=== PATIENT | male | born 1945 | race Caucasian/White ===

== ENCOUNTER → 2017-01-09 | Outpatient (CLI) | payer MEDICARE, MEDICAID ==
[~2017-01-09] MED LIST: ACID1TAB7 PO; ALBU8.5H5 INH; ALPR0.25 PO; ASPI-496 PO; AZIT500T77 PO; BUDE10.2 INH; CALC-141 PO; CARV3.1212 PO; CHOL20003 PO; ERGO500017 PO; FAMO-79 PO; FLUT1DIS3 INH; GUAI600T22 PO; LEVO500T33 PO; LEVO750T26 PO; LISI-167 PO; LOVA10TA PO; NICO1PAT TD; NICO1PAT4 TD; PRED20TA PO; PRED5TAB PO; TIOT18CA INH; TRAM50TA2 PO
[2017-01-09 07:39] LABS: ASPARTATE AMINO TRANSFERASE 13 U/L (15-37); BLOOD UREA NITROGEN 22 mg/dL (7-18)
== END | disposition home or self-care (01) ==
LOC: LAB 07:13
PROVIDERS: ATTEND Internal Medicine
DX: M81.8 Other osteoporosis without current pathological fracture (principal)
CPT/HCPCS: 36415; 80053

== ENCOUNTER 2017-04-03 06:46 | Emergency (ER) | payer MEDICARE, MEDICAID ==
[~2017-04-03] VITALS: Ht 182.9 cm; Wt 54.7 kg
[~2017-04-03 06:46] MED LIST changes: +CHOL2000 PO; -CHOL20003 PO
[2017-04-03 07:40] LABS: HEMATOCRIT 39.3 % (39.2-51.8); HEMOGLOBIN 13.1 g/dL (13.7-18.0); WHITE BLOOD COUNT 16.5 x10^3/uL (3.4-10)
[2017-04-03 07:51] LABS: BLOOD UREA NITROGEN 25 mg/dL (7-18)
[2017-04-03 07:55] LABS: IS PT STATUS REG ER OR PRE ER? YES
[2017-04-03] MEDS ORDERED: LEVOFLOXACIN 750 MG TABLET PO ONE (09:00)
[2017-04-03] MEDS ORDERED: LEVOFLOXACIN 750 MG TABLET ONE (09:01)
[2017-04-03 09:15] VITALS: BP 169/85
== END 2017-04-03 09:53 | disposition home or self-care (01) ==
LOC: ED 07:24
DX: J18.9 Pneumonia, unspecified organism (principal); J44.9 Chronic obstructive pulmonary disease, unspecified; I25.2 Old myocardial infarction; Z93.3 Colostomy status
CPT/HCPCS: 36415; 71020; 80048; 82040; 83880; 84484; 85025; 93005; 99285

== ENCOUNTER → 2017-07-16 | Outpatient (CLI) | payer MEDICARE, MEDICAID ==
[~2017-07-16] MED LIST changes: +AZIT500T5 PO; -AZIT500T77 PO; +CEFD300C37 PO; +DOXY100T PO; -GUAI600T22 PO; +GUAI600T31 PO; -LEVO500T33 PO; +LEVO500T47 PO; +METO25TA35 PO; +NICO-430 TD; +NICO-486 TD; -NICO1PAT TD; -NICO1PAT4 TD; +RIVA20TA PO
== END | disposition home or self-care (01) ==
LOC: CFH 11:35 → EDSTATUS 11:45
PROVIDERS: ATTEND Internal Medicine
DX: Z13.820 Encounter for screening for osteoporosis (principal); M81.8 Other osteoporosis without current pathological fracture
CPT/HCPCS: 77080

== ENCOUNTER 2017-08-15 14:07 | Emergency (ER) | payer MEDICARE, MEDICAID ==
[~2017-08-15] VITALS: Ht 182.9 cm; Wt 53.3 kg
[2017-08-15 15:54] LABS: BASOPHILS # (AUTO) 0.04 x10^3/uL (0-0.1); BASOPHILS % (AUTO) 0 % (0-1); EOSINOPHILS # (AUTO) 0.56 x10^3/uL (0-0.4); EOSINOPHILS % (AUTO) 5 % (1-7); LYMPHOCYTES # (AUTO) 4.48 x10^3/uL (1-3.4); LYMPHOCYTES % (AUTO) 40 % (22-44); MD NO; MEAN CORPUSCULAR HEMOGLOBIN 32.5 pg (27.5-34.5); MEAN CORPUSCULAR HGB CONC 34.1 g/dL (33.2-36.2); MEAN CORPUSCULAR VOLUME 95.3 fL (81-97); MEAN PLATELET VOLUME 10.7 fL (7.4-10.4); MONOCYTES # (AUTO) 0.85 x10^3/uL (0.2-0.8); MONOCYTES % (AUTO) 8 % (2-9); NEUTROPHILS # (AUTO) 5.17 x10^3/uL (1.8-6.8); NEUTROPHILS % (AUTO) 47 % (42-75); PLATELET COUNT 205 x10^3/uL (130-400); RED CELL DISTRIBUTION WIDTH 13.8 % (9.4-14.8)
[2017-08-15 16:00] LABS: INTERNATIONAL NORMALIZED RATIO 1.11 (0.93-1.1); PROTHROMBIN TIME 11.4 Seconds (9.6-11.5)
[2017-08-15 16:03] LABS: ANION GAP 5 mmol/L (5-15); CALCIUM 8.4 mg/dL (8.5-10.1); CHLORIDE 108 mmol/L (98-107)
[2017-08-15 16:04] LABS: CREATININE 1.02 mg/dL (0.7-1.3)
[2017-08-15 17:33] VITALS: BP 132/82
== END 2017-08-15 17:35 | disposition home or self-care (01) ==
LOC: ED 15:58
DX: J44.0 Chronic obstructive pulmonary disease with (acute) lower respiratory infection (principal); R09.3 Abnormal sputum; I50.9 Heart failure, unspecified; I25.2 Old myocardial infarction; I48.91 Unspecified atrial fibrillation; Z93.3 Colostomy status
CPT/HCPCS: 36415; 71020; 80048; 85025; 85610; 85730; 93005; 99285

== ENCOUNTER → 2017-09-02 | Outpatient (CLI) | payer MEDICARE, MEDICAID | END | disposition home or self-care (01) | LOC: RAD 15:10 | PROVIDERS: ATTEND Registered Nurse | DX: J18.9 Pneumonia, unspecified organism (principal); J84.10 Pulmonary fibrosis, unspecified | CPT/HCPCS: 71046 ==

== ENCOUNTER → 2017-09-09 | Outpatient (CLI) | payer MEDICARE, MEDICAID ==
[2017-09-09 09:15] LABS: ALANINE AMINOTRANSFERASE 20 U/L (12-78); ALBUMIN 3.9 g/dL (3.4-5.0); ANION GAP 7 mmol/L (5-15); CALCIUM 9.8 mg/dL (8.5-10.1); CHLORIDE 101 mmol/L (98-107); CHOLESTEROL, TOTAL 193 mg/dL (140-239); CREATININE 1.04 mg/dL (0.7-1.3)
[2017-09-09 09:17] LABS: ALKALINE PHOSPHATASE 69 U/L (45-117); BILIRUBIN,TOTAL 0.5 mg/dL (0.2-1.0); CHOL/HDL RATIO 1.9; HDL CHOL % 51 % (26-37); HDL CHOLESTEROL (DIRECT) 99 mg/dL (40-60); LDL CHOLESTEROL,CALCULATED 75 mg/dL (54-169); LDL/HDL RATIO 0.8 (0.5-3.0); TOTAL PROTEIN 7.8 g/dL (6.4-8.2); TRIGLYCERIDES 94 mg/dL (50-200); VLDL CHOLESTEROL 19 mg/dL (0-25)
== END | disposition home or self-care (01) ==
LOC: LAB 08:53
PROVIDERS: ATTEND Internal Medicine Cardiovascular Disease
DX: E78.4 Other hyperlipidemia (principal)
CPT/HCPCS: 36415; 80053; 80061

== ENCOUNTER 2017-10-21 16:13 | Inpatient (IN) | payer MEDICARE, MEDICAID ==
[~2017-10-21] VITALS: Ht 182.9 cm; Wt 58.5 kg
[2017-10-21] MEDS ORDERED: SODIUM CHLORIDE FLUSH 10ML SYR IVF ONE (17:00)
[2017-10-21] MEDS ORDERED: ALBUTEROL/IPRATROPIUM 2.5MG/0.5MG, 3 ML NPPB ONE (17:00)
[2017-10-21] MEDS ORDERED: ALBUTEROL/IPRATROPIUM 2.5MG/0.5MG, 3 ML ONE (17:42)
[2017-10-21 17:46] LABS: BASOPHILS # (AUTO) 0.06 x10^3/uL (0-0.1); BASOPHILS % (AUTO) 1 % (0-1); EOSINOPHILS # (AUTO) 1.27 x10^3/uL (0-0.4); EOSINOPHILS % (AUTO) 10 % (1-7); LYMPHOCYTES # (AUTO) 2.72 x10^3/uL (1-3.4); LYMPHOCYTES % (AUTO) 21 % (22-44); MD NO; MEAN CORPUSCULAR HEMOGLOBIN 31.8 pg (27.5-34.5); MEAN CORPUSCULAR HGB CONC 33.8 g/dL (33.2-36.2); MEAN CORPUSCULAR VOLUME 94.2 fL (81-97); MEAN PLATELET VOLUME 10.5 fL (7.4-10.4); MONOCYTES # (AUTO) 1.04 x10^3/uL (0.2-0.8); MONOCYTES % (AUTO) 8 % (2-9); NEUTROPHILS # (AUTO) 8.14 x10^3/uL (1.8-6.8); NEUTROPHILS % (AUTO) 62 % (42-75); PLATELET COUNT 213 x10^3/uL (130-400); RED BLOOD COUNT 3.86 x10^6/uL (4.38-5.82)
[2017-10-21 17:56] LABS: ALANINE AMINOTRANSFERASE 31 U/L (12-78); ALBUMIN 3.8 g/dL (3.4-5.0); ANION GAP 9 mmol/L (5-15); CALCIUM 9.3 mg/dL (8.5-10.1); CHLORIDE 104 mmol/L (98-107)
[2017-10-21 18:01] LABS: ALKALINE PHOSPHATASE 79 U/L (45-117); BILIRUBIN,TOTAL 0.2 mg/dL (0.2-1.0); TOTAL PROTEIN 7.8 g/dL (6.4-8.2); TROPONIN I 0.017 ng/mL (0.000-0.045)
[2017-10-21] MEDS ORDERED: SODIUM CHLORIDE FLUSH 10ML SYR IVF PRN (19:30)
[2017-10-21] MEDS ORDERED: HOME OXYGEN NAS (19:34)
[2017-10-21 20:30] VITALS: BP 162/69
[2017-10-21 20:35] VITALS: BP 162/69
[2017-10-21] MEDS ORDERED: morphine SULFATE 10 MG/ML, 1ML IVPush PRN (21:00)
[2017-10-21] MEDS ORDERED: hydrALAzine 20 MG/ML, 1ML IVPush PRN (21:00)
[2017-10-21] MEDS ORDERED: ALBUTEROL/IPRATROPIUM 2.5MG/0.5MG, 3 ML NPPB SCH (21:00)
[2017-10-21] MEDS ORDERED: ALBUTEROL/IPRATROPIUM 2.5MG/0.5MG, 3 ML NPPB PRN (21:00)
[2017-10-21] MEDS ORDERED: ENALAPRILAT 1.25 MG/ML, 2ML IVPush PRN (21:00)
[2017-10-21] MEDS ORDERED: ACETAMINOPHEN 325 MG TABLET PO PRN (21:00)
[2017-10-21] MEDS ORDERED: POLYETHYLENE GLYCOL 17 GM PACKET PO PRN (21:00)
[2017-10-21] MEDS ORDERED: BISACODYL 10 MG SUPP PR PRN (21:00)
[2017-10-21] MEDS: TEMAZEPAM 15 MG CAPSULE PO PRN (21:44)
[2017-10-21] MEDS: OXYcodone IR 5MG TABLET PO PRN (21:45)
[2017-10-21] MEDS: NICOTINE 7 MG/24 HR PATCH.TD24 TD SCH (21:45)
[2017-10-21] MEDS: DOXYCYCLINE 100MG TABLET PO SCH (21:45)
[2017-10-21] MEDS: methylPREDNISolone SOD SUCC 125 MG/2 ML IVPush SCH (21:50)
[2017-10-21 21:51] LABS: FREE T4 (FREE THYROXINE) 0.86 ng/dL (0.76-1.46); HEMOGLOBIN A1C 5.8 % (4.2-6.3); THYROID STIMULATING HORMONE 3.78 mIU/L (0.358-3.740)
[2017-10-21] MEDS: ALBUTEROL/IPRATROPIUM 2.5MG/0.5MG, 3 ML NPPB SCH (22:09)
[2017-10-22 00:19] LABS: TROPONIN I 0.018 ng/mL (0.000-0.045)
[2017-10-22 01:10] VITALS: BP 113/53
[2017-10-22] MEDS: ALBUTEROL/IPRATROPIUM 2.5MG/0.5MG, 3 ML NPPB SCH ×5 (01:55→18:57)
[2017-10-22] MEDS: methylPREDNISolone SOD SUCC 125 MG/2 ML IVPush SCH ×4 (04:32→21:49)
[2017-10-22 06:13] LABS: BASOPHILS # (AUTO) 0.01 x10^3/uL (0-0.1); BASOPHILS % (AUTO) 0 % (0-1); EOSINOPHILS % (AUTO) 0 % (1-7); LYMPHOCYTES # (AUTO) 1.02 x10^3/uL (1-3.4); LYMPHOCYTES % (AUTO) 15 % (22-44); MD NO; MEAN CORPUSCULAR HEMOGLOBIN 33.1 pg (27.5-34.5); MEAN CORPUSCULAR HGB CONC 34.9 g/dL (33.2-36.2); MEAN CORPUSCULAR VOLUME 94.8 fL (81-97); MEAN PLATELET VOLUME 10.9 fL (7.4-10.4); MONOCYTES # (AUTO) 0.05 x10^3/uL (0.2-0.8); MONOCYTES % (AUTO) 1 % (2-9); NEUTROPHILS # (AUTO) 5.53 x10^3/uL (1.8-6.8); NEUTROPHILS % (AUTO) 84 % (42-75); PLATELET COUNT 191 x10^3/uL (130-400); RED BLOOD COUNT 3.36 x10^6/uL (4.38-5.82); RED CELL DISTRIBUTION WIDTH 14.3 % (9.4-14.8)
[2017-10-22 06:27] LABS: TROPONIN I < 0.015 ng/mL (0.000-0.045)
[2017-10-22 06:28] LABS: ALBUMIN 3.4 g/dL (3.4-5.0); ANION GAP 9 mmol/L (5-15); CHLORIDE 107 mmol/L (98-107)
[2017-10-22 06:33] LABS: ALANINE AMINOTRANSFERASE 28 U/L (12-78); ALKALINE PHOSPHATASE 69 U/L (45-117); BILIRUBIN,TOTAL 0.3 mg/dL (0.2-1.0); CHOL/HDL RATIO 1.6; CHOLESTEROL, TOTAL 153 mg/dL (140-239); CREATININE 1.34 mg/dL (0.7-1.3); HDL CHOL % 63 % (26-37); HDL CHOLESTEROL (DIRECT) 97 mg/dL (40-60); LDL CHOLESTEROL,CALCULATED 50 mg/dL (54-169); LDL/HDL RATIO 0.5 (0.5-3.0); TRIGLYCERIDES 29 mg/dL (50-200); VLDL CHOLESTEROL 6 mg/dL (0-25)
[2017-10-22 07:00] LABS: MICROSCOPIC NOT IND
[2017-10-22 07:05] LABS: CULTURE INDICATED? NO
[2017-10-22 08:08] VITALS: BP 132/66
[2017-10-22 08:30] LABS: TROPONIN I < 0.015 ng/mL (0.000-0.045)
[2017-10-22] MEDS ORDERED: REGADENOSON 0.4 MG/5 ML SYRINGE ONE (08:44)
[2017-10-22] MEDS ORDERED: RIVAROXABAN 20 MG TABLET PO SCH (09:00)
[2017-10-22] MEDS: ASPIRIN 81 MG TABLET EC PO SCH (10:44)
[2017-10-22] MEDS: SENNA/DOCUSATE TABLET PO SCH (10:47)
[2017-10-22] MEDS: METOPROLOL TARTRATE 25 MG TABLET PO SCH ×2 (10:47→20:20)
[2017-10-22] MEDS: GUAIFENESIN ER 600 MG TABLET PO SCH ×2 (10:47→20:19)
[2017-10-22] MEDS: CHOLECALCIFEROL 1,000 UNIT TABLET PO SCH (10:48)
[2017-10-22] MEDS: DOXYCYCLINE 100MG TABLET PO SCH ×2 (10:48→20:20)
[2017-10-22] MEDS: FLUTICASONE/VILANTEROL 200-25MCG/INH INH SCH (12:41)
[2017-10-22] MEDS: ONDANSETRON 2MG/ML, 2ML IVPush PRN (12:45)
[2017-10-22] MEDS: OXYcodone IR 5MG TABLET PO PRN (12:46)
[2017-10-22 13:41] VITALS: BP 152/64
[2017-10-22] MEDS ORDERED: SODIUM CHLORIDE 0.9% 1,000 ML IV ONE (13:58)
[2017-10-22 14:57] VITALS: BP 141/64
[2017-10-22] MEDS ORDERED: CALCIUM CARBONATE 500 MG TAB.CHEW ONE (15:25)
[2017-10-22] MEDS: CALCIUM CARBONATE 500 MG TAB.CHEW PO PRN (15:26)
[2017-10-22 19:16] VITALS: BP 121/55
[2017-10-22] MEDS: LOVASTATIN 40 MG TABLET PO SCH (20:20)
[2017-10-22] MEDS: NICOTINE 7 MG/24 HR PATCH.TD24 TD SCH (20:20)
[2017-10-22] MEDS: TEMAZEPAM 15 MG CAPSULE PO PRN (20:30)
[2017-10-22] MEDS ORDERED: LOVASTATIN 10 MG TABLET PO SCH (21:00)
[2017-10-23 01:20] VITALS: BP 101/48
[2017-10-23] MEDS: methylPREDNISolone SOD SUCC 125 MG/2 ML IVPush SCH (04:01)
[2017-10-23] MEDS: ALBUTEROL/IPRATROPIUM 2.5MG/0.5MG, 3 ML NPPB SCH ×6 (04:30→23:04)
[2017-10-23 05:51] LABS: ANION GAP 6 mmol/L (5-15); CALCIUM 8.5 mg/dL (8.5-10.1); CHLORIDE 105 mmol/L (98-107); INTERNATIONAL NORMALIZED RATIO 1.06 (0.93-1.1)
[2017-10-23 05:54] LABS: CREATININE 1.18 mg/dL (0.7-1.3)
[2017-10-23 06:15] LABS: BASOPHILS % (AUTO) 0 % (0-1); EOSINOPHILS % (AUTO) 0 % (1-7); LYMPHOCYTES # (AUTO) 1.35 x10^3/uL (1-3.4); LYMPHOCYTES % (AUTO) 9 % (22-44); MD NO; MEAN CORPUSCULAR HEMOGLOBIN 31.3 pg (27.5-34.5); MEAN CORPUSCULAR HGB CONC 33.7 g/dL (33.2-36.2); MEAN CORPUSCULAR VOLUME 93.1 fL (81-97); MEAN PLATELET VOLUME 11.3 fL (7.4-10.4); MONOCYTES # (AUTO) 0.64 x10^3/uL (0.2-0.8); MONOCYTES % (AUTO) 4 % (2-9); NEUTROPHILS # (AUTO) 13.45 x10^3/uL (1.8-6.8); NEUTROPHILS % (AUTO) 87 % (42-75); PLATELET COUNT 189 x10^3/uL (130-400); RED BLOOD COUNT 3.35 x10^6/uL (4.38-5.82); RED CELL DISTRIBUTION WIDTH 14.1 % (9.4-14.8)
[2017-10-23 06:37] VITALS: BP 114/57
[2017-10-23] MEDS: ASPIRIN 81 MG TABLET EC PO SCH (08:05)
[2017-10-23] MEDS: METOPROLOL TARTRATE 25 MG TABLET PO SCH ×2 (08:06→22:03)
[2017-10-23] MEDS: SENNA/DOCUSATE TABLET PO SCH (08:06)
[2017-10-23] MEDS: GUAIFENESIN ER 600 MG TABLET PO SCH ×2 (08:06→22:03)
[2017-10-23] MEDS: DOXYCYCLINE 100MG TABLET PO SCH ×2 (08:07→22:02)
[2017-10-23] MEDS: CHOLECALCIFEROL 1,000 UNIT TABLET PO SCH (08:07)
[2017-10-23] MEDS: FLUTICASONE/VILANTEROL 200-25MCG/INH INH SCH (08:08)
[2017-10-23] MEDS: CALCIUM CARBONATE 500 MG TAB.CHEW PO PRN (08:36)
[2017-10-23] MEDS: ONDANSETRON 2MG/ML, 2ML IVPush PRN (08:39)
[2017-10-23] MEDS ORDERED: LIDOCAINE 2%, 20ML ONE (11:31)
[2017-10-23] MEDS ORDERED: BIVALIRUDIN 250 MG ONE (11:31)
[2017-10-23] MEDS ORDERED: VERAPAMIL 2.5 MG/ML, 2ML ONE (11:31)
[2017-10-23] MEDS ORDERED: FENTANYL PF 100 MCG/2ML ONE (11:31)
[2017-10-23] MEDS ORDERED: TICAGRELOR 90 MG TABLET ONE (11:31)
[2017-10-23] MEDS ORDERED: MIDAZOLAM 1 MG/ML, 5ML ONE (11:31)
[2017-10-23] MEDS ORDERED: HEPARIN 1,000 UNITS/ML, 10ML ONE (11:31)
[2017-10-23 14:39] VITALS: BP 147/74
[2017-10-23] MEDS: OXYcodone IR 5MG TABLET PO PRN ×2 (16:36→18:00)
[2017-10-23 19:15] VITALS: BP 160/79
[2017-10-23] MEDS: NICOTINE 7 MG/24 HR PATCH.TD24 TD SCH (22:03)
[2017-10-23] MEDS: LOVASTATIN 40 MG TABLET PO SCH (22:03)
[2017-10-24 01:29] VITALS: BP 127/62
[2017-10-24] MEDS: ALBUTEROL/IPRATROPIUM 2.5MG/0.5MG, 3 ML NPPB SCH ×3 (03:00→10:40)
[2017-10-24 05:53] LABS: BASOPHILS # (AUTO) 0.02 x10^3/uL (0-0.1); BASOPHILS % (AUTO) 0 % (0-1); EOSINOPHILS % (AUTO) 0 % (1-7); LYMPHOCYTES # (AUTO) 2.07 x10^3/uL (1-3.4); LYMPHOCYTES % (AUTO) 14 % (22-44); MD NO; MEAN CORPUSCULAR HEMOGLOBIN 32.1 pg (27.5-34.5); MEAN CORPUSCULAR HGB CONC 33.4 g/dL (33.2-36.2); MEAN CORPUSCULAR VOLUME 95.9 fL (81-97); MEAN PLATELET VOLUME 11.1 fL (7.4-10.4); MONOCYTES # (AUTO) 1.22 x10^3/uL (0.2-0.8); MONOCYTES % (AUTO) 8 % (2-9); NEUTROPHILS # (AUTO) 11.88 x10^3/uL (1.8-6.8); NEUTROPHILS % (AUTO) 78 % (42-75); PLATELET COUNT 204 x10^3/uL (130-400); RED BLOOD COUNT 3.55 x10^6/uL (4.38-5.82); RED CELL DISTRIBUTION WIDTH 14.3 % (9.4-14.8)
[2017-10-24 06:00] LABS: CHLORIDE 106 mmol/L (98-107)
[2017-10-24 06:10] LABS: ANION GAP 6 mmol/L (5-15); CREATININE 1.23 mg/dL (0.7-1.3)
[2017-10-24] MEDS: FLUTICASONE/VILANTEROL 200-25MCG/INH INH SCH (07:50)
[2017-10-24] MEDS: CHOLECALCIFEROL 1,000 UNIT TABLET PO SCH (07:51)
[2017-10-24] MEDS: ASPIRIN 81 MG TABLET EC PO SCH (07:52)
[2017-10-24] MEDS: GUAIFENESIN ER 600 MG TABLET PO SCH (07:52)
[2017-10-24] MEDS: DOXYCYCLINE 100MG TABLET PO SCH (07:53)
[2017-10-24] MEDS: METOPROLOL TARTRATE 25 MG TABLET PO SCH (07:53)
[2017-10-24] MEDS: SENNA/DOCUSATE TABLET PO SCH (07:53)
[2017-10-24 08:06] VITALS: BP 143/70
[2017-10-24] MEDS ORDERED: PRED20TA PO (11:50)
[2017-10-24] MEDS ORDERED: DOXY100T PO (11:50)
[2017-10-24] MEDS ORDERED: RIVAROXABAN 20 MG TABLET PO SCH (17:00)
== END 2017-10-24 14:06 | disposition home or self-care (01) | DRG 286 ==
LOC: ED 18:14 → EDIP 19:02 → 3NE 20:22 → 5SO 10-22 14:30
PROVIDERS: ADMIT Internal Medicine; ATTEND Internal Medicine
PROC: B2111ZZ Fluoroscopy of Multiple Coronary Arteries using Low Osmolar Contrast (ICD-10-PCS; principal; 2017-10-21)
PROC: 4A023N8 Measurement of Cardiac Sampling and Pressure, Bilateral, Percutaneous Approach (ICD-10-PCS; 2017-10-21)
PROC: B2151ZZ Fluoroscopy of Left Heart using Low Osmolar Contrast (ICD-10-PCS; 2017-10-21)
PROC: B2131ZZ Fluoroscopy of Multiple Coronary Artery Bypass Grafts using Low Osmolar Contrast (ICD-10-PCS; 2017-10-21)
DX: I25.10 Atherosclerotic heart disease of native coronary artery without angina pectoris (principal); J96.21 Acute and chronic respiratory failure with hypoxia; D68.59 Other primary thrombophilia; I25.82 Chronic total occlusion of coronary artery; I48.91 Unspecified atrial fibrillation; I11.0 Hypertensive heart disease with heart failure; I50.9 Heart failure, unspecified; I48.92 Unspecified atrial flutter; J44.1 Chronic obstructive pulmonary disease with (acute) exacerbation; D64.9 Anemia, unspecified; E78.5 Hyperlipidemia, unspecified; G89.29 Other chronic pain; J40 Bronchitis, not specified as acute or chronic; M54.9 Dorsalgia, unspecified; F17.210 Nicotine dependence, cigarettes, uncomplicated; I25.2 Old myocardial infarction; Z82.49 Family history of ischemic heart disease and other diseases of the circulatory system; Z87.01 Personal history of pneumonia (recurrent); Z87.11 Personal history of peptic ulcer disease; Z90.49 Acquired absence of other specified parts of digestive tract; Z93.3 Colostomy status; Z95.1 Presence of aortocoronary bypass graft; Z99.81 Dependence on supplemental oxygen
CPT/HCPCS: 36415; 71046; 78452; 80048; 80053; 80061; 81003; 83036; 83735; 84439; 84443; 84484; 85025; 85610; 85730; 93005; 93017; 93461; 94640; 99156; 99157; 99285; C1760; C1769; C1894; J0583; J1644; J2250; J2405; J2785; J3010; J3490; J7620; A9502; C9898; J2930; J7030; J7512; Q9967

== ENCOUNTER → 2017-12-29 | Outpatient (CLI) | payer MEDICARE, MEDICAID ==
[~2017-12-29] MED LIST changes: +HOME OXYGEN NAS
== END | disposition home or self-care (01) ==
LOC: CFH 07:03
PROVIDERS: ATTEND Physical Medicine & Rehabilitation Pain Medicine
DX: M51.26 Other intervertebral disc displacement, lumbar region (principal); M48.56XA Collapsed vertebra, not elsewhere classified, lumbar region, initial encounter for fracture; M47.816 Spondylosis without myelopathy or radiculopathy, lumbar region
CPT/HCPCS: 72148

== ENCOUNTER → 2017-12-29 | Outpatient (CLI) | payer MEDICARE, MEDICAID ==
[2017-12-29 09:12] LABS: ALBUMIN 3.6 g/dL (3.4-5.0); ANION GAP 8 mmol/L (5-15); CALCIUM 8.5 mg/dL (8.5-10.1); CHLORIDE 105 mmol/L (98-107)
[2017-12-29 09:16] LABS: ALANINE AMINOTRANSFERASE 24 U/L (12-78); ALKALINE PHOSPHATASE 58 U/L (45-117); BILIRUBIN,TOTAL 0.4 mg/dL (0.2-1.0); CHOL/HDL RATIO 1.8; CHOLESTEROL, TOTAL 164 mg/dL (140-239); CREATININE 1.39 mg/dL (0.7-1.3); HDL CHOL % 54 % (26-37); HDL CHOLESTEROL (DIRECT) 89 mg/dL (40-60); LDL CHOLESTEROL,CALCULATED 58 mg/dL (54-169); LDL/HDL RATIO 0.7 (0.5-3.0); TOTAL PROTEIN 7.1 g/dL (6.4-8.2); TRIGLYCERIDES 87 mg/dL (50-200); VLDL CHOLESTEROL 17 mg/dL (0-25)
== END ==
LOC: LAB 08:46
PROVIDERS: ATTEND Internal Medicine Cardiovascular Disease
DX: E78.4 Other hyperlipidemia (principal)
CPT/HCPCS: 36415; 80053; 80061

== ENCOUNTER → 2018-06-02 | Outpatient (CLI) | payer MEDICARE, MEDICAID | END | disposition home or self-care (01) | LOC: CVU 12:11 | PROVIDERS: ATTEND Internal Medicine Cardiovascular Disease | DX: I86.8 Varicose veins of other specified sites (principal); J44.9 Chronic obstructive pulmonary disease, unspecified; I25.10 Atherosclerotic heart disease of native coronary artery without angina pectoris; E78.5 Hyperlipidemia, unspecified | CPT/HCPCS: 93922 ==

== ENCOUNTER → 2018-07-02 | Outpatient (CLI) | payer MEDICARE, MEDICAID | END | disposition home or self-care (01) | LOC: CVU 11:36 | PROVIDERS: ATTEND Internal Medicine Cardiovascular Disease | DX: Z02.9 Encounter for administrative examinations, unspecified (principal) ==

== ENCOUNTER → 2018-07-05 | Outpatient (CLI) | payer MEDICARE, MEDICAID ==
[2018-07-05 08:59] LABS: MEAN CORPUSCULAR HEMOGLOBIN 30.1 pg (27.5-34.5); MEAN CORPUSCULAR HGB CONC 32.6 g/dL (33.2-36.2); MEAN CORPUSCULAR VOLUME 92.3 fL (81-97); MEAN PLATELET VOLUME 10.3 fL (7.4-10.4); PLATELET COUNT 291 x10^3/uL (130-400); RED BLOOD COUNT 4.34 x10^6/uL (4.38-5.82); RED CELL DISTRIBUTION WIDTH 14.2 % (9.4-14.8)
[2018-07-05 09:14] LABS: ALANINE AMINOTRANSFERASE 19 U/L (12-78); ALBUMIN 4.2 g/dL (3.4-5.0); ANION GAP 6 mmol/L (5-15); CALCIUM 8.7 mg/dL (8.5-10.1); CHLORIDE 109 mmol/L (98-107); CHOLESTEROL, TOTAL 191 mg/dL (140-239); CREATININE 1.16 mg/dL (0.7-1.3)
[2018-07-05 09:16] LABS: ALKALINE PHOSPHATASE 69 U/L (45-117); BILIRUBIN,TOTAL 0.3 mg/dL (0.2-1.0); CHOL/HDL RATIO 2.1; HDL CHOL % 47 % (26-37); HDL CHOLESTEROL (DIRECT) 90 mg/dL (40-60); LDL CHOLESTEROL,CALCULATED 74 mg/dL (54-169); LDL/HDL RATIO 0.8 (0.5-3.0); TRIGLYCERIDES 135 mg/dL (50-200); VLDL CHOLESTEROL 27 mg/dL (0-25)
== END | disposition home or self-care (01) ==
LOC: LAB 08:41
PROVIDERS: ATTEND Internal Medicine
DX: E78.49 Other hyperlipidemia (principal); I10 Essential (primary) hypertension; I25.10 Atherosclerotic heart disease of native coronary artery without angina pectoris
CPT/HCPCS: 36415; 80053; 80061; 82306; 82570; 83735; 83970; 84100; 84156; 84550; 85027

== ENCOUNTER → 2018-08-11 | Outpatient (CLI) | payer MEDICARE, MEDICAID ==
[~2018-08-11] MED LIST changes: +LOVA40TA2 PO; +METH4TAB2 PO; +TEMA15CA6 PO
== END | disposition home or self-care (01) ==
LOC: CFH 09:45 → MERGE 10:15
PROVIDERS: ATTEND Registered Nurse
DX: Z12.2 Encounter for screening for malignant neoplasm of respiratory organs (principal); M47.894 Other spondylosis, thoracic region; M43.8X5 Other specified deforming dorsopathies, thoracolumbar region; I70.0 Atherosclerosis of aorta; J98.4 Other disorders of lung; F17.200 Nicotine dependence, unspecified, uncomplicated; Z95.5 Presence of coronary angioplasty implant and graft; F17.210 Nicotine dependence, cigarettes, uncomplicated
CPT/HCPCS: G0297

== ENCOUNTER 2018-08-26 15:24 | Inpatient (IN) | payer MEDICARE, MEDICAID ==
[~2018-08-26] VITALS: Ht 182.9 cm; Wt 56.3 kg
[~2018-08-26 15:24] MED LIST changes: -LOVA40TA2 PO; -METH4TAB2 PO; -TEMA15CA6 PO
--- NOTE | 2018-08-26 15:54 | NUR ---
Pt in imaging.
[2018-08-26] MEDS ORDERED: ALBUTEROL SULFATE 2.5 MG/3 ML NPPB ONE (16:00)
--- NOTE | 2018-08-26 16:00 | NUR ---
Pt back to room from imaging. Dr. Arguello at bedside to evaluate pt.
[2018-08-26] MEDS ORDERED: methylPREDNISolone SOD SUCC 125 MG/2 ML ONE ×2 (16:18→19:58)
--- NOTE | 2018-08-26 16:24 | NUR ---
PIV started, labs drawn, pt medicated per MAR.
[2018-08-26] MEDS ORDERED: methylPREDNISolone SOD SUCC 125 MG/2 ML IVP ONE (16:30)
[2018-08-26] MEDS ORDERED: ALBUTEROL SULFATE 2.5 MG/3 ML ONE (16:31)
[2018-08-26] MEDS ORDERED: LOVA40TA2 PO (16:36)
[2018-08-26 16:44] LABS: MEAN CORPUSCULAR HEMOGLOBIN 32.9 pg (27.5-34.5); MEAN CORPUSCULAR HGB CONC 35.2 g/dL (33.2-36.2); MEAN CORPUSCULAR VOLUME 93.5 fL (81-97); MEAN PLATELET VOLUME 10.7 fL (7.4-10.4); PLATELET COUNT 243 x10^3/uL (130-400); RED BLOOD COUNT 3.99 x10^6/uL (4.38-5.82); RED CELL DISTRIBUTION WIDTH 14.8 % (9.4-14.8)
[2018-08-26 16:57] LABS: CHLORIDE 102 mmol/L (98-107)
[2018-08-26 17:07] LABS: ALBUMIN 3.9 g/dL (3.4-5.0); ANION GAP 8 mmol/L (5-15); CALCIUM 9.4 mg/dL (8.5-10.1); CREATININE 1.42 mg/dL (0.7-1.3)
[2018-08-26 17:14] LABS: MD YES
--- NOTE | 2018-08-26 17:15 | NUR ---
Pt resting on gurney, back to room from bathroom, ambulatory without assistance. RT tx done.
[2018-08-26 17:17] LABS: <PLATELET ESTIMATE> ADEQUATE; <RBC MORPHOLOGY> NORMAL; EOS#(MANUAL) 0.61 x10^3/uL (0.0-0.4); EOS% (MANUAL) 3 % (1-7); LARGE PLATELETS 1+; LYMPH#(MANUAL) 6.32 x10^3/uL (1-3.4); LYMPHS% (MANUAL) 31 % (22-44); MONOS#(MANUAL) 1.84 x10^3/uL (0.3-2.7); MONOS% (MANUAL) 9 % (2-9); SEG#(MANUAL) 11.63 x10^3/uL (1.8-6.8); SEGS% (MANUAL) 57 % (42-75)
--- NOTE | 2018-08-26 17:34 | NUR ---
Pt ambulated to bathroom, no assistance required.
[2018-08-26] MEDS ORDERED: SODIUM CHLORIDE FLUSH 10ML SYR IVF PRN (18:30)
--- NOTE | 2018-08-26 18:34 | NUR ---
Pt resting on gurney, on all monitors, VSS, NSR noted. Pt aware of plan to admit to the hospital.
--- NOTE | 2018-08-26 18:41 | NUR ---
Dr. Husain at bedside to evaluate pt.
[2018-08-26] MEDS: SODIUM CHLORIDE 0.9% 1,000 ML IV SCH (18:45)
[2018-08-26] MEDS: AZITHROMYCIN 500 MG TABLET PO SCH (19:00)
[2018-08-26] MEDS ORDERED: ACETAMINOPHEN 325 MG TABLET PO PRN (19:00)
--- NOTE | 2018-08-26 19:55 | NUR ---
PT RESTING ON GURNEY. RR EVEN AND UNLABORED. 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 PT DENIES NEEDS OR PAIN ATT.
[2018-08-26] MEDS ORDERED: AZITHROMYCIN 250 MG TABLET ONE (19:58)
[2018-08-26] MEDS: methylPREDNISolone SOD SUCC 125 MG/2 ML IVPush SCH (20:00)
[2018-08-26] MEDS ORDERED: TEMPLATE NON-FORMULARY MED. (Tramadol Hcl** 50 MG) PO SCH (21:00)
--- NOTE | 2018-08-26 21:58 | NUR ---
NO CHANGE IN PT STATUS. AWAITING ADMIT BED
[2018-08-26] MEDS ORDERED: METOPROLOL TARTRATE 25 MG TABLET ONE (22:54)
[2018-08-26] MEDS ORDERED: BENZONATATE 100 MG CAPSULE ONE (22:55)
[2018-08-26] MEDS ORDERED: GUAIFENESIN ER 600 MG TABLET ONE (22:55)
[2018-08-26] MEDS ORDERED: TEMAZEPAM 15 MG CAPSULE ONE (22:58)
[2018-08-26] MEDS: BENZONATATE 100 MG CAPSULE PO SCH (23:03)
[2018-08-26] MEDS: GUAIFENESIN ER 600 MG TABLET PO SCH (23:03)
[2018-08-26] MEDS: METOPROLOL TARTRATE 25 MG TABLET PO SCH (23:03)
--- NOTE | 2018-08-26 23:17 | NUR ---
report given to josse tai
[2018-08-26] MEDS ORDERED: TEMAZEPAM 15 MG CAPSULE PO ONE (23:30)
[2018-08-26] MEDS ORDERED: ALBUTEROL SULFATE 2.5 MG/3 ML NPPB PRN (23:30)
[2018-08-26] MEDS: BUDESONIDE 0.5 MG/2 ML INHA NPPB SCH (23:45)
[2018-08-26 23:53] VITALS: BP 162/72
[2018-08-27] MEDS: LOVASTATIN 40 MG TABLET PO SCH ×2 (00:37→20:46)
[2018-08-27 02:23] VITALS: BP 142/78
[2018-08-27] MEDS: methylPREDNISolone SOD SUCC 125 MG/2 ML IVPush SCH ×4 (02:58→20:47)
[2018-08-27] MEDS: ASPIRIN 81 MG TABLET EC PO SCH (05:05)
[2018-08-27 06:52] VITALS: BP_SYST 121; BP_SYST 142; BP_DIAS 64; BP_DIAS 78
[2018-08-27] MEDS: SODIUM CHLORIDE 0.9% 1,000 ML IV SCH (06:57)
[2018-08-27] MEDS: ALBUTEROL SULFATE 2.5 MG/3 ML NPPB SCH ×4 (07:00→20:20)
[2018-08-27] MEDS: BUDESONIDE 0.5 MG/2 ML INHA NPPB SCH ×2 (09:00→20:20)
[2018-08-27] MEDS: CHOLECALCIFEROL 1,000 UNIT TABLET PO SCH (09:13)
[2018-08-27] MEDS: RIVAROXABAN 20 MG TABLET PO SCH (09:13)
[2018-08-27] MEDS: AZITHROMYCIN 500 MG TABLET PO SCH (09:13)
[2018-08-27] MEDS: GUAIFENESIN ER 600 MG TABLET PO SCH ×2 (09:13→21:12)
[2018-08-27] MEDS: METOPROLOL TARTRATE 25 MG TABLET PO SCH ×2 (09:14→21:12)
[2018-08-27] MEDS: BENZONATATE 100 MG CAPSULE PO SCH ×3 (09:14→20:46)
[2018-08-27 13:10] VITALS: BP 105/57
[2018-08-27] MEDS: DOCUSATE 100 MG CAPSULE PO SCH (16:33)
[2018-08-27 21:00] VITALS: BP 141/59
[2018-08-27] MEDS ORDERED: TEMAZEPAM 15 MG CAPSULE PO PRN (21:00)
[2018-08-27 21:44] VITALS: BP 130/59
[2018-08-28] MEDS: methylPREDNISolone SOD SUCC 125 MG/2 ML IVPush SCH ×2 (03:06→10:02)
[2018-08-28 03:20] VITALS: BP 117/61
[2018-08-28 05:30] LABS: CHLORIDE 109 mmol/L (98-107)
[2018-08-28 05:35] LABS: ALBUMIN 2.9 g/dL (3.4-5.0); ANION GAP 6 mmol/L (5-15); CALCIUM 7.9 mg/dL (8.5-10.1); CREATININE 0.96 mg/dL (0.7-1.3)
[2018-08-28] MEDS: ASPIRIN 81 MG TABLET EC PO SCH (05:38)
[2018-08-28 06:40] VITALS: BP 120/64
[2018-08-28] MEDS ORDERED: AZIT500T5 PO (06:51)
[2018-08-28] MEDS ORDERED: METH4TAB2 PO (06:51)
[2018-08-28] MEDS ORDERED: TEMA15CA6 PO (06:51)
[2018-08-28] MEDS ORDERED: GUAI600T31 PO (06:51)
[2018-08-28] MEDS: ALBUTEROL SULFATE 2.5 MG/3 ML NPPB SCH (08:55)
[2018-08-28] MEDS: BUDESONIDE 0.5 MG/2 ML INHA NPPB SCH (08:55)
[2018-08-28] MEDS: GUAIFENESIN ER 600 MG TABLET PO SCH (10:02)
[2018-08-28] MEDS: METOPROLOL TARTRATE 25 MG TABLET PO SCH (10:02)
[2018-08-28] MEDS: CHOLECALCIFEROL 1,000 UNIT TABLET PO SCH (10:02)
[2018-08-28] MEDS: RIVAROXABAN 20 MG TABLET PO SCH (10:02)
[2018-08-28] MEDS: AZITHROMYCIN 500 MG TABLET PO SCH (10:03)
[2018-08-28] MEDS: BENZONATATE 100 MG CAPSULE PO SCH (10:03)
[2018-08-28] MEDS: DOCUSATE 100 MG CAPSULE PO SCH (10:04)
== END 2018-08-28 11:52 | disposition home or self-care (01) | DRG 682 ==
LOC: SUATTDRO 18:20 → ED 18:27 → EDIP 18:28 → ED 18:31 → 4NOR 23:29
PROVIDERS: ADMIT Hospitalist; ATTEND Hospitalist
DX: N17.9 Acute kidney failure, unspecified (principal); J96.21 Acute and chronic respiratory failure with hypoxia; E43 Unspecified severe protein-calorie malnutrition; J44.1 Chronic obstructive pulmonary disease with (acute) exacerbation; I48.92 Unspecified atrial flutter; D68.69 Other thrombophilia; Z68.1 Body mass index [BMI] 19.9 or less, adult; I48.91 Unspecified atrial fibrillation; E78.5 Hyperlipidemia, unspecified; F17.210 Nicotine dependence, cigarettes, uncomplicated; G47.00 Insomnia, unspecified; I25.10 Atherosclerotic heart disease of native coronary artery without angina pectoris; Z99.81 Dependence on supplemental oxygen; Z95.1 Presence of aortocoronary bypass graft
CPT/HCPCS: 36415; 71046; 80048; 82040; 83735; 83880; 84100; 85025; 93005; 94640; 96361; 96374; 96375; G0378; J7613; J7626; J2930; J7030

== ENCOUNTER 2018-12-10 15:46 | Inpatient (IN) | payer MEDICARE, MEDICAID ==
[~2018-12-10] VITALS: Ht 182.9 cm; Wt 58.7 kg
[~2018-12-10 15:46] MED LIST changes: +ALBU5SOL6 INH; +LOVA40TA2 PO; +METH4TAB2 PO; +PRED10TA PO; +TEMA15CA6 PO
--- NOTE | 2018-12-10 16:04 | NUR ---
REPORT TO KOKI SÁNCHEZ. PT RESTING IN POSITION OF COMFORT IN [facility]. FALL PRECAUTIONS IN PLACE. TOLERATING NC O2 WELL, PT CONTINUES TO HAVE RETRACTIONS C INCREASED WOB, AWAITING EVAL BY ED MD. CALL LIGHT W/IN REACH, PT INSTRUCTED ON USE, VERBALIZED UNDERSTANDING.
--- NOTE | 2018-12-10 16:15 | NUR ---
REPORT TAKEN FROM KOKI RUIZ AT BEDSIDE FOR PT ASSESSMENT.
--- NOTE | 2018-12-10 16:58 | NUR ---
ENE STAFFORD AT BEDSIDE.
[2018-12-10 17:07] LABS: ALBUMIN 3.3 g/dL (3.4-5.0); ANION GAP 8 mmol/L (5-15); CALCIUM 9.5 mg/dL (8.5-10.1); CHLORIDE 103 mmol/L (98-107)
[2018-12-10 17:13] LABS: ALANINE AMINOTRANSFERASE 19 U/L (12-78); ALKALINE PHOSPHATASE 62 U/L (45-117); BILIRUBIN,TOTAL 0.4 mg/dL (0.2-1.0); CREATININE 1.14 mg/dL (0.7-1.3); TOTAL PROTEIN 6.9 g/dL (6.4-8.2); TROPONIN I < 0.015 ng/mL (0.000-0.045)
[2018-12-10 17:17] LABS: MEAN CORPUSCULAR HEMOGLOBIN 31.7 pg (27.5-34.5); MEAN CORPUSCULAR HGB CONC 33.8 g/dL (33.2-36.2); MEAN CORPUSCULAR VOLUME 93.7 fL (81-97); PLATELET COUNT 263 x10^3/uL (130-400); RED BLOOD COUNT 3.53 x10^6/uL (4.38-5.82); RED CELL DISTRIBUTION WIDTH 14.5 % (9.4-14.8)
[2018-12-10 17:19] LABS: MD YES
[2018-12-10 17:21] LABS: BAND#(MANUAL) 2.15 x10^3/uL; BANDS%(MANUAL) 10 % (0-7); EOS#(MANUAL) 0.22 x10^3/uL (0.0-0.4); EOS% (MANUAL) 1 % (1-7); LYMPH#(MANUAL) 1.94 x10^3/uL (1-3.4); LYMPHS% (MANUAL) 9 % (22-44); MONOS#(MANUAL) 1.08 x10^3/uL (0.3-2.7); MONOS% (MANUAL) 5 % (2-9); SEG#(MANUAL) 16.13 x10^3/uL (1.8-6.8); SEGS% (MANUAL) 75 % (42-75)
[2018-12-10 17:22] LABS: <PLATELET ESTIMATE> ADEQUATE; <PLT MORPHOLOGY> NORMAL PLT MORPH; <RBC MORPHOLOGY> NORMAL
--- NOTE | 2018-12-10 17:45 | NUR ---
PT RESTING ON GURNEY, RESPS EVEN AND UNLABORED. 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 PT HAS NO COMPLAINT AT THIS TIME.
[2018-12-10] MEDS ORDERED: TIOT4MIS3 INH (17:55)
[2018-12-10] MEDS ORDERED: CALCIUM PO (17:55)
[2018-12-10] MEDS ORDERED: GLYC10.7 INH (17:55)
[2018-12-10] MEDS ORDERED: LEVA15HF4 INH (17:55)
[2018-12-10] MEDS ORDERED: MAGN500T PO (17:55)
[2018-12-10] MEDS ORDERED: TRAM50TA2 PO (17:55)
[2018-12-10] MEDS ORDERED: ACETAMINOPHEN 325 MG TABLET PO PRN (18:00)
--- NOTE | 2018-12-10 18:00 | NUR ---
HOSPITALIST LINDA ART NOTIFIED MED REC COMPLETE AND IN NEED OF MD REVIEW.
[2018-12-10] MEDS ORDERED: ALBUTEROL/IPRATROPIUM 2.5MG/0.5MG, 3 ML NPPB SCH (19:00)
[2018-12-10] MEDS ORDERED: ALBUTEROL/IPRATROPIUM 2.5MG/0.5MG, 3 ML ONE (19:11)
--- NOTE | 2018-12-10 19:15 | NUR ---
pt resting on gurney, resps even and unlabored, denies pain. RT at bedside for tx. pt provided with tea at request. pt is sinus tach on quality assurance monitor chassis, rate 100s with no ectopy. awaiting med tele bed assignment and dispo.
--- NOTE | 2018-12-10 19:25 | NUR ---
Note salvador in EDM - 12/10/18 at 1926 by SHONDA pt requesting toradol for discomfort at urethral opening. ENE Garzon notified.
--- NOTE | 2018-12-10 19:26 | NUR ---
note undone, charted in error
[2018-12-10] MEDS ORDERED: KETOROLAC 30 MG/1 ML ONE (19:29)
[2018-12-10] MEDS: ALBUTEROL/IPRATROPIUM 2.5MG/0.5MG, 3 ML NPPB SCH (20:00)
--- NOTE | 2018-12-10 20:03 | NUR ---
report given to KOKI Driver pt awaiting transport to room 488-2 at this time.
[2018-12-10] MEDS: TEMAZEPAM 15 MG CAPSULE PO PRN (20:54)
[2018-12-10] MEDS: NICOTINE 14MG/24 HR PATCH.TD24 TD SCH (20:54)
[2018-12-10] MEDS: LOVASTATIN 40 MG TABLET PO SCH (20:55)
[2018-12-10] MEDS: METOPROLOL TARTRATE 25 MG TABLET PO SCH (20:55)
[2018-12-10] MEDS: FAMOTIDINE 20 MG TABLET PO SCH (20:56)
[2018-12-10] MEDS: MONTELUKAST 10 MG TABLET PO SCH (20:56)
[2018-12-10] MEDS: SODIUM CHLORIDE FLUSH 10ML SYR IVF SCH (20:57)
[2018-12-10] MEDS ORDERED: DOXYCYCLINE 100MG TABLET PO SCH (21:00)
[2018-12-10 22:20] VITALS: BP 121/63
[2018-12-11 02:29] VITALS: BP 118/70
[2018-12-11] MEDS: ALBUTEROL/IPRATROPIUM 2.5MG/0.5MG, 3 ML NPPB SCH ×6 (03:23→18:55)
[2018-12-11 05:05] LABS: BASOPHILS # (AUTO) 0.03 x10^3/uL (0-0.1); BASOPHILS % (AUTO) 0 % (0-1); EOSINOPHILS # (AUTO) 0.06 x10^3/uL (0-0.4); EOSINOPHILS % (AUTO) 1 % (1-7); LYMPHOCYTES # (AUTO) 1.53 x10^3/uL (1-3.4); LYMPHOCYTES % (AUTO) 12 % (22-44); MD NO; MEAN CORPUSCULAR HEMOGLOBIN 31.2 pg (27.5-34.5); MEAN CORPUSCULAR HGB CONC 33.7 g/dL (33.2-36.2); MEAN CORPUSCULAR VOLUME 92.7 fL (81-97); MEAN PLATELET VOLUME 10.8 fL (7.4-10.4); MONOCYTES # (AUTO) 0.23 x10^3/uL (0.2-0.8); MONOCYTES % (AUTO) 2 % (2-9); NEUTROPHILS # (AUTO) 10.57 x10^3/uL (1.8-6.8); NEUTROPHILS % (AUTO) 85 % (42-75); PLATELET COUNT 260 x10^3/uL (130-400); RED BLOOD COUNT 3.51 x10^6/uL (4.38-5.82); RED CELL DISTRIBUTION WIDTH 14.1 % (9.4-14.8)
[2018-12-11 05:18] LABS: CHLORIDE 101 mmol/L (98-107)
[2018-12-11 05:29] LABS: ALANINE AMINOTRANSFERASE 19 U/L (12-78); ALBUMIN 3.2 g/dL (3.4-5.0); ALKALINE PHOSPHATASE 57 U/L (45-117); ANION GAP 7 mmol/L (5-15); BILIRUBIN,TOTAL 0.5 mg/dL (0.2-1.0); CALCIUM 9.2 mg/dL (8.5-10.1); CREATININE 1.21 mg/dL (0.7-1.3)
[2018-12-11 07:04] VITALS: BP 122/66
[2018-12-11] MEDS ORDERED: LEVALBUTEROL TARTRATE INH SCH (08:30)
[2018-12-11] MEDS: SODIUM CHLORIDE FLUSH 10ML SYR IVF SCH ×2 (09:00→21:41)
[2018-12-11] MEDS: RIVAROXABAN 20 MG TABLET PO SCH (09:13)
[2018-12-11] MEDS: ASPIRIN 81 MG TABLET EC PO SCH (09:13)
[2018-12-11] MEDS: AZITHROMYCIN 500 MG TABLET PO SCH (09:13)
[2018-12-11] MEDS: FAMOTIDINE 20 MG TABLET PO SCH ×2 (09:13→21:38)
[2018-12-11] MEDS: METOPROLOL TARTRATE 25 MG TABLET PO SCH ×2 (09:13→21:38)
[2018-12-11] MEDS ORDERED: SENNA/DOCUSATE TABLET PO PRN (09:30)
[2018-12-11] MEDS: GUAIFENESIN 200 MG TABLET PO SCH ×3 (09:58→21:39)
[2018-12-11] MEDS: methylPREDNISolone SOD SUCC 125 MG/2 ML IVPush SCH ×3 (09:58→21:39)
[2018-12-11 12:49] VITALS: BP 146/68
[2018-12-11] MEDS: NICOTINE 14MG/24 HR PATCH.TD24 TD SCH (16:48)
[2018-12-11 19:20] VITALS: BP 120/58
[2018-12-11] MEDS: LOVASTATIN 40 MG TABLET PO SCH (21:38)
[2018-12-11] MEDS: MONTELUKAST 10 MG TABLET PO SCH (21:38)
[2018-12-11] MEDS: TEMAZEPAM 15 MG CAPSULE PO PRN (21:38)
[2018-12-11] MEDS: BENZONATATE 100 MG CAPSULE PO SCH (21:39)
[2018-12-12 01:09] VITALS: BP 132/60
[2018-12-12] MEDS: GUAIFENESIN 200 MG TABLET PO SCH ×5 (04:47→20:07)
[2018-12-12] MEDS: methylPREDNISolone SOD SUCC 125 MG/2 ML IVPush SCH ×3 (04:47→20:04)
[2018-12-12 06:54] VITALS: BP 120/61
[2018-12-12] MEDS: ALBUTEROL/IPRATROPIUM 2.5MG/0.5MG, 3 ML NPPB SCH ×4 (07:20→19:47)
[2018-12-12] MEDS: BENZONATATE 100 MG CAPSULE PO SCH ×3 (08:43→20:05)
[2018-12-12] MEDS: AZITHROMYCIN 500 MG TABLET PO SCH (08:44)
[2018-12-12] MEDS: METOPROLOL TARTRATE 25 MG TABLET PO SCH ×2 (08:44→20:05)
[2018-12-12] MEDS: FAMOTIDINE 20 MG TABLET PO SCH ×2 (08:44→20:05)
[2018-12-12] MEDS: RIVAROXABAN 20 MG TABLET PO SCH (08:44)
[2018-12-12] MEDS: ASPIRIN 81 MG TABLET EC PO SCH (08:44)
[2018-12-12] MEDS: SODIUM CHLORIDE FLUSH 10ML SYR IVF SCH ×2 (08:44→20:14)
[2018-12-12] MEDS: MAGNESIUM OXIDE 400 MG TABLET PO SCH (08:44)
[2018-12-12] MEDS ORDERED: methylPREDNISolone SOD SUCC 125 MG/2 ML IVPush SCH (09:00)
[2018-12-12 12:23] VITALS: BP 122/60
[2018-12-12] MEDS: NICOTINE 14MG/24 HR PATCH.TD24 TD SCH (17:19)
[2018-12-12 18:58] VITALS: BP 123/61
[2018-12-12] MEDS: LOVASTATIN 40 MG TABLET PO SCH (20:04)
[2018-12-12] MEDS: MONTELUKAST 10 MG TABLET PO SCH (20:05)
[2018-12-12] MEDS: TEMAZEPAM 15 MG CAPSULE PO PRN (20:05)
[2018-12-13 00:43] VITALS: BP 105/58
[2018-12-13] MEDS: GUAIFENESIN 200 MG TABLET PO SCH ×4 (05:26→20:06)
[2018-12-13] MEDS: methylPREDNISolone SOD SUCC 125 MG/2 ML IVPush SCH ×4 (05:26→20:07)
[2018-12-13 07:20] VITALS: BP 119/66
[2018-12-13] MEDS: ALBUTEROL/IPRATROPIUM 2.5MG/0.5MG, 3 ML NPPB SCH ×4 (07:25→19:32)
[2018-12-13] MEDS: BENZONATATE 100 MG CAPSULE PO SCH ×3 (08:34→20:07)
[2018-12-13] MEDS: METOPROLOL TARTRATE 25 MG TABLET PO SCH ×2 (08:34→20:07)
[2018-12-13] MEDS: FAMOTIDINE 20 MG TABLET PO SCH ×2 (08:34→20:07)
[2018-12-13] MEDS: SODIUM CHLORIDE FLUSH 10ML SYR IVF SCH ×2 (08:34→20:08)
[2018-12-13] MEDS: ASPIRIN 81 MG TABLET EC PO SCH (08:34)
[2018-12-13] MEDS: MAGNESIUM OXIDE 400 MG TABLET PO SCH (08:34)
[2018-12-13] MEDS: RIVAROXABAN 20 MG TABLET PO SCH (08:34)
[2018-12-13] MEDS: AZITHROMYCIN 500 MG TABLET PO SCH (08:34)
[2018-12-13 15:00] VITALS: BP 121/60
[2018-12-13 16:08] VITALS: BP 121/60
[2018-12-13] MEDS: NICOTINE 14MG/24 HR PATCH.TD24 TD SCH (16:43)
[2018-12-13] MEDS: LOVASTATIN 40 MG TABLET PO SCH (20:06)
[2018-12-13] MEDS: TEMAZEPAM 15 MG CAPSULE PO PRN (20:06)
[2018-12-13] MEDS: MONTELUKAST 10 MG TABLET PO SCH (20:07)
[2018-12-13 20:12] VITALS: BP 110/68
[2018-12-14 02:38] VITALS: BP 120/62
[2018-12-14] MEDS: methylPREDNISolone SOD SUCC 125 MG/2 ML IVPush SCH ×4 (05:37→20:11)
[2018-12-14] MEDS: GUAIFENESIN 200 MG TABLET PO SCH ×4 (05:37→20:11)
[2018-12-14] MEDS: ALBUTEROL/IPRATROPIUM 2.5MG/0.5MG, 3 ML NPPB SCH ×4 (06:53→19:15)
[2018-12-14 07:04] VITALS: BP 135/64
[2018-12-14] MEDS: FAMOTIDINE 20 MG TABLET PO SCH ×2 (08:28→20:11)
[2018-12-14] MEDS: SODIUM CHLORIDE FLUSH 10ML SYR IVF SCH ×2 (08:28→20:10)
[2018-12-14] MEDS: METOPROLOL TARTRATE 25 MG TABLET PO SCH ×2 (08:28→20:11)
[2018-12-14] MEDS: RIVAROXABAN 20 MG TABLET PO SCH (08:29)
[2018-12-14] MEDS: AZITHROMYCIN 500 MG TABLET PO SCH (08:29)
[2018-12-14] MEDS: BENZONATATE 100 MG CAPSULE PO SCH ×3 (08:29→20:11)
[2018-12-14] MEDS: ASPIRIN 81 MG TABLET EC PO SCH (08:29)
[2018-12-14] MEDS: MAGNESIUM OXIDE 400 MG TABLET PO SCH (08:29)
[2018-12-14 13:03] VITALS: BP 132/54
[2018-12-14 18:55] VITALS: BP 122/61
[2018-12-14] MEDS: NICOTINE 14MG/24 HR PATCH.TD24 TD SCH (20:10)
[2018-12-14] MEDS: MONTELUKAST 10 MG TABLET PO SCH (20:11)
[2018-12-14] MEDS: TEMAZEPAM 15 MG CAPSULE PO PRN (20:11)
[2018-12-14] MEDS: LOVASTATIN 40 MG TABLET PO SCH (20:11)
[2018-12-15 02:02] VITALS: BP 130/72
[2018-12-15] MEDS: GUAIFENESIN 200 MG TABLET PO SCH ×4 (05:57→20:12)
[2018-12-15] MEDS: methylPREDNISolone SOD SUCC 125 MG/2 ML IVPush SCH (05:57)
[2018-12-15 06:15] LABS: MEAN CORPUSCULAR HEMOGLOBIN 30.8 pg (27.5-34.5); MEAN CORPUSCULAR HGB CONC 32.7 g/dL (33.2-36.2); MEAN CORPUSCULAR VOLUME 94.3 fL (81-97); MEAN PLATELET VOLUME 10.5 fL (7.4-10.4); PLATELET COUNT 273 x10^3/uL (130-400); RED BLOOD COUNT 3.67 x10^6/uL (4.38-5.82); RED CELL DISTRIBUTION WIDTH 14.3 % (9.4-14.8)
[2018-12-15 06:20] LABS: CHLORIDE 104 mmol/L (98-107)
[2018-12-15 06:27] LABS: ALANINE AMINOTRANSFERASE 22 U/L (12-78); ALBUMIN 2.9 g/dL (3.4-5.0); ALKALINE PHOSPHATASE 54 U/L (45-117); ANION GAP 3 mmol/L (5-15); BILIRUBIN,TOTAL 0.2 mg/dL (0.2-1.0); CALCIUM 8.6 mg/dL (8.5-10.1); CREATININE 1.04 mg/dL (0.7-1.3); TOTAL PROTEIN 6.3 g/dL (6.4-8.2)
[2018-12-15 06:48] LABS: BASOPHILS # (AUTO) 0.02 x10^3/uL (0-0.1); BASOPHILS % (AUTO) 0 % (0-1); EOSINOPHILS % (AUTO) 0 % (1-7); LYMPHOCYTES # (AUTO) 2.22 x10^3/uL (1-3.4); LYMPHOCYTES % (AUTO) 12 % (22-44); MD SCAN; MONOCYTES # (AUTO) 0.44 x10^3/uL (0.2-0.8); MONOCYTES % (AUTO) 2 % (2-9); NEUTROPHILS # (AUTO) 15.41 x10^3/uL (1.8-6.8); NEUTROPHILS % (AUTO) 85 % (42-75)
[2018-12-15] MEDS: ALBUTEROL/IPRATROPIUM 2.5MG/0.5MG, 3 ML NPPB SCH ×4 (07:00→20:00)
[2018-12-15 07:14] VITALS: BP 136/74
[2018-12-15] MEDS: ASPIRIN 81 MG TABLET EC PO SCH (09:13)
[2018-12-15] MEDS: MAGNESIUM OXIDE 400 MG TABLET PO SCH (09:13)
[2018-12-15] MEDS: BENZONATATE 100 MG CAPSULE PO SCH ×3 (09:13→20:12)
[2018-12-15] MEDS: METOPROLOL TARTRATE 25 MG TABLET PO SCH ×2 (09:13→20:12)
[2018-12-15] MEDS: RIVAROXABAN 20 MG TABLET PO SCH (09:13)
[2018-12-15] MEDS: LEVOFLOXACIN 750 MG TABLET PO SCH (09:13)
[2018-12-15] MEDS: SODIUM CHLORIDE FLUSH 10ML SYR IVF SCH ×2 (09:14→20:13)
[2018-12-15] MEDS: FAMOTIDINE 20 MG TABLET PO SCH ×2 (09:14→20:12)
[2018-12-15 12:59] LABS: MICROSCOPIC NOT IND
[2018-12-15 13:02] LABS: CULTURE INDICATED? NO
[2018-12-15] MEDS ORDERED: OMNIPAQUE 350 MG/ML, 100ML BOTTLE ONE (14:10)
[2018-12-15] MEDS: SODIUM CHLORIDE 0.9% 1,000 ML IV SCH (17:08)
[2018-12-15 17:56] VITALS: BP 130/69
[2018-12-15 18:32] VITALS: BP 137/61
[2018-12-15] MEDS: NICOTINE 14MG/24 HR PATCH.TD24 TD SCH (20:11)
[2018-12-15] MEDS: TEMAZEPAM 15 MG CAPSULE PO PRN (20:12)
[2018-12-15] MEDS: MONTELUKAST 10 MG TABLET PO SCH (20:12)
[2018-12-15] MEDS: LOVASTATIN 40 MG TABLET PO SCH (20:12)
[2018-12-16 00:41] VITALS: BP 111/64
[2018-12-16] MEDS: SODIUM CHLORIDE 0.9% 1,000 ML IV SCH ×2 (03:01→12:30)
[2018-12-16 05:44] LABS: ALBUMIN 2.5 g/dL (3.4-5.0); ANION GAP 2 mmol/L (5-15); CHLORIDE 106 mmol/L (98-107); MEAN CORPUSCULAR HEMOGLOBIN 31.9 pg (27.5-34.5); MEAN CORPUSCULAR VOLUME 93.8 fL (81-97); MEAN PLATELET VOLUME 10.6 fL (7.4-10.4); PLATELET COUNT 269 x10^3/uL (130-400); RED BLOOD COUNT 3.07 x10^6/uL (4.38-5.82); RED CELL DISTRIBUTION WIDTH 13.8 % (9.4-14.8)
[2018-12-16 05:45] LABS: CREATININE 1.26 mg/dL (0.7-1.3)
[2018-12-16] MEDS: GUAIFENESIN 200 MG TABLET PO SCH ×3 (06:00→16:27)
[2018-12-16 06:57] LABS: BASOPHILS # (AUTO) 0.03 x10^3/uL (0-0.1); BASOPHILS % (AUTO) 0 % (0-1); EOSINOPHILS % (AUTO) 0 % (1-7); LYMPHOCYTES # (AUTO) 3.33 x10^3/uL (1-3.4); LYMPHOCYTES % (AUTO) 17 % (22-44); MD SCAN; MONOCYTES % (AUTO) 6 % (2-9); NEUTROPHILS # (AUTO) 14.74 x10^3/uL (1.8-6.8); NEUTROPHILS % (AUTO) 77 % (42-75)
[2018-12-16 09:13] VITALS: BP 114/66
[2018-12-16] MEDS: METOPROLOL TARTRATE 25 MG TABLET PO SCH (09:20)
[2018-12-16] MEDS: LEVOFLOXACIN 750 MG TABLET PO SCH (09:20)
[2018-12-16] MEDS: RIVAROXABAN 20 MG TABLET PO SCH (09:21)
[2018-12-16] MEDS: BENZONATATE 100 MG CAPSULE PO SCH ×2 (09:21→16:27)
[2018-12-16] MEDS: FAMOTIDINE 20 MG TABLET PO SCH (09:21)
[2018-12-16] MEDS: ASPIRIN 81 MG TABLET EC PO SCH (09:22)
[2018-12-16] MEDS: MAGNESIUM OXIDE 400 MG TABLET PO SCH (09:22)
[2018-12-16] MEDS: ALBUTEROL/IPRATROPIUM 2.5MG/0.5MG, 3 ML NPPB SCH ×3 (09:30→13:50)
[2018-12-16] MEDS: SODIUM CHLORIDE FLUSH 10ML SYR IVF SCH (10:00)
[2018-12-16 14:56] VITALS: BP 130/75
[2018-12-16] MEDS ORDERED: LACT1CAP35 PO (17:04)
[2018-12-16] MEDS ORDERED: MONT10TA9 PO (17:04)
[2018-12-16] MEDS ORDERED: METH4TAB2 PO (17:04)
[2018-12-16] MEDS ORDERED: LEVO750T26 PO (17:04)
[2018-12-16] MEDS ORDERED: NICO-486 TD (17:04)
== END 2018-12-16 18:16 | disposition home or self-care (01) | DRG 189 ==
LOC: ED 16:36 → EDIP 17:53 → 4EST 20:22
PROVIDERS: ADMIT Internal Medicine; ATTEND Internal Medicine
DX: J96.21 Acute and chronic respiratory failure with hypoxia (principal); E43 Unspecified severe protein-calorie malnutrition; J44.1 Chronic obstructive pulmonary disease with (acute) exacerbation; D68.59 Other primary thrombophilia; Z68.1 Body mass index [BMI] 19.9 or less, adult; I48.2 Chronic atrial fibrillation; B96.5 Pseudomonas (aeruginosa) (mallei) (pseudomallei) as the cause of diseases classified elsewhere; K59.00 Constipation, unspecified; I25.10 Atherosclerotic heart disease of native coronary artery without angina pectoris; F17.210 Nicotine dependence, cigarettes, uncomplicated; E78.5 Hyperlipidemia, unspecified; I50.9 Heart failure, unspecified; G47.00 Insomnia, unspecified; D72.829 Elevated white blood cell count, unspecified; Z99.81 Dependence on supplemental oxygen; Z95.1 Presence of aortocoronary bypass graft; Z79.899 Other long term (current) drug therapy; Z79.01 Long term (current) use of anticoagulants; I25.2 Old myocardial infarction
CPT/HCPCS: 36415; 71045; 74018; 74177; 80048; 80053; 81003; 82040; 83605; 83880; 84484; 85025; 87040; 87070; 87077; 87186; 87205; 93005; 94640; 99285; G0378; J7620; Q9967; J2930; J7030; J7512

== ENCOUNTER 2019-01-07 09:37 | Outpatient (CLI) | payer MEDICARE, MEDICAID ==
[~2019-01-07 09:37] MED LIST changes: +CALCIUM PO; +GLYC10.7 INH; +LACT1CAP35 PO; +LEVA15HF4 INH; +MAGN500T PO; +MONT10TA9 PO; +TIOT4MIS3 INH
[2019-01-07 11:30] LABS: CHLORIDE 105 mmol/L (98-107)
[2019-01-07 12:27] LABS: ALANINE AMINOTRANSFERASE 22 U/L (12-78); ALBUMIN 3.4 g/dL (3.4-5.0); ALKALINE PHOSPHATASE 55 U/L (45-117); ANION GAP 9 mmol/L (5-15); CALCIUM 9.5 mg/dL (8.5-10.1); TOTAL PROTEIN 6.8 g/dL (6.4-8.2)
== END 2019-01-07 23:59 | disposition home or self-care (01) ==
LOC: CFH 09:37
PROVIDERS: ATTEND Registered Nurse
DX: M85.88 Other specified disorders of bone density and structure, other site (principal); M81.6 Localized osteoporosis [Lequesne]; M81.8 Other osteoporosis without current pathological fracture
CPT/HCPCS: 36415; 77080; 80053

== ENCOUNTER → 2019-02-18 | Outpatient (CLI) | payer MEDICARE, MEDICAID ==
[2019-02-18 10:18] LABS: ALANINE AMINOTRANSFERASE 25 U/L (12-78); ALBUMIN 4.3 g/dL (3.4-5.0); ANION GAP 8 mmol/L (5-15); CALCIUM 9.7 mg/dL (8.5-10.1); CHLORIDE 103 mmol/L (98-107)
[2019-02-18 10:21] LABS: ALKALINE PHOSPHATASE 61 U/L (45-117); BILIRUBIN,TOTAL 0.6 mg/dL (0.2-1.0); TOTAL PROTEIN 7.8 g/dL (6.4-8.2)
== END | disposition home or self-care (01) ==
LOC: LAB 09:35
PROVIDERS: ATTEND Internal Medicine Cardiovascular Disease
DX: M81.6 Localized osteoporosis [Lequesne] (principal)
CPT/HCPCS: 36415; 80053

== ENCOUNTER 2019-08-05 08:42 | Outpatient (CLI) | payer MEDICARE, MEDICAID ==
[~2019-08-05 08:42] MED LIST changes: +AZIT500T10 PO; -AZIT500T5 PO
[2019-08-05 09:07] LABS: ALBUMIN 3.8 g/dL (3.4-5.0); BILIRUBIN, DIRECT 0.2 mg/dL (0.1-0.2)
[2019-08-05 09:09] LABS: BILIRUBIN,INDIRECT 0.4 mg/dL (0.0-2.0); BILIRUBIN,TOTAL 0.6 mg/dL (0.2-1.0); LDL/HDL RATIO 0.7 (0.5-3.0); TOTAL PROTEIN 7.1 g/dL (6.4-8.2)
== END 2019-08-05 23:59 | disposition home or self-care (01) ==
LOC: LAB 08:42
PROVIDERS: ATTEND Internal Medicine Cardiovascular Disease
DX: E78.49 Other hyperlipidemia (principal)
CPT/HCPCS: 36415; 80061; 80076

== ENCOUNTER → 2019-08-12 | Outpatient (CLI) | payer MEDICARE, MEDICAID ==
[2019-08-12 08:22] LABS: ALANINE AMINOTRANSFERASE 28 U/L (12-78); ALBUMIN 3.7 g/dL (3.4-5.0); ANION GAP 6 mmol/L (5-15); CALCIUM 9.3 mg/dL (8.5-10.1); CHLORIDE 102 mmol/L (98-107); CREATININE 1.24 mg/dL (0.7-1.3)
[2019-08-12 08:24] LABS: ALKALINE PHOSPHATASE 58 U/L (45-117); BILIRUBIN,TOTAL 0.5 mg/dL (0.2-1.0); TOTAL PROTEIN 7.2 g/dL (6.4-8.2)
== END | disposition home or self-care (01) ==
LOC: LAB 07:56
PROVIDERS: ATTEND Internal Medicine
DX: M81.8 Other osteoporosis without current pathological fracture (principal); X58.XXXA Exposure to other specified factors, initial encounter; Y93.89 Activity, other specified; Y92.89 Other specified places as the place of occurrence of the external cause; Y99.8 Other external cause status
CPT/HCPCS: 36415; 80053

== ENCOUNTER → 2019-08-15 | Outpatient (CLI) | payer MEDICARE, MEDICAID | END | disposition home or self-care (01) | LOC: CFH 10:48 | PROVIDERS: ATTEND Registered Nurse | DX: Z12.2 Encounter for screening for malignant neoplasm of respiratory organs (principal); J98.4 Other disorders of lung; I70.0 Atherosclerosis of aorta; I25.10 Atherosclerotic heart disease of native coronary artery without angina pectoris; F17.210 Nicotine dependence, cigarettes, uncomplicated | CPT/HCPCS: G0297 ==

== ENCOUNTER 2019-08-24 08:12 | Outpatient (CLI) | payer MEDICARE, MEDICAID ==
[2019-08-24 08:36] LABS: ALBUMIN 3.8 g/dL (3.4-5.0); ANION GAP 8 mmol/L (5-15); CALCIUM 9.1 mg/dL (8.5-10.1); CHLORIDE 104 mmol/L (98-107)
[2019-08-24 08:40] LABS: ALANINE AMINOTRANSFERASE 25 U/L (12-78); ALKALINE PHOSPHATASE 59 U/L (45-117); BILIRUBIN,TOTAL 0.6 mg/dL (0.2-1.0); CHOLESTEROL, TOTAL 218 mg/dL (140-239); CREATININE 1.32 mg/dL (0.7-1.3); HDL CHOL % 51 % (26-37); HDL CHOLESTEROL (DIRECT) 111 mg/dL (40-60); LDL CHOLESTEROL,CALCULATED 79 mg/dL (54-169); LDL/HDL RATIO 0.7 (0.5-3.0); TOTAL PROTEIN 7.2 g/dL (6.4-8.2); TRIGLYCERIDES 138 mg/dL (50-200); VLDL CHOLESTEROL 28 mg/dL (0-25)
== END 2019-08-24 23:59 | disposition home or self-care (01) ==
LOC: LAB 08:12
PROVIDERS: ATTEND Internal Medicine Cardiovascular Disease
DX: E78.49 Other hyperlipidemia (principal)
CPT/HCPCS: 36415; 80053; 80061

== ENCOUNTER → 2019-12-02 | Outpatient (CLI) | payer MEDICARE, MEDICAID ==
[~2019-12-02] MED LIST changes: +MONT10TA11 PO; -MONT10TA9 PO
[2019-12-02 13:46] LABS: MEAN CORPUSCULAR HGB CONC 33.5 g/dL (33.2-36.2); MEAN CORPUSCULAR VOLUME 92.5 fL (81-97); RED BLOOD COUNT 3.83 x10^6/uL (4.38-5.82); RED CELL DISTRIBUTION WIDTH 13.6 % (9.4-14.8)
[2019-12-02 14:05] LABS: MEAN PLATELET VOLUME 10.1 fL (7.4-10.4); PLATELET COUNT 246 x10^3/uL (130-400)
[2019-12-02 14:06] LABS: MD YES
[2019-12-02 14:08] LABS: BAND#(MANUAL) 0.74 x10^3/uL; BANDS%(MANUAL) 4 % (0-7); LYMPH#(MANUAL) 2.76 x10^3/uL (1-3.4); LYMPHS% (MANUAL) 15 % (22-44); MONOS#(MANUAL) 1.66 x10^3/uL (0.3-2.7); MONOS% (MANUAL) 9 % (2-9); SEG#(MANUAL) 13.25 x10^3/uL (1.8-6.8); SEGS% (MANUAL) 72 % (42-75)
[2019-12-02 14:10] LABS: <PLATELET ESTIMATE> ADEQUATE; <RBC MORPHOLOGY> NORMAL; LARGE PLATELETS 1+
[2019-12-02 14:24] LABS: CHLORIDE 100 mmol/L (98-107)
[2019-12-02 14:37] LABS: ALANINE AMINOTRANSFERASE 18 U/L (12-78); ALBUMIN 3.4 g/dL (3.4-5.0); ALKALINE PHOSPHATASE 69 U/L (45-117); ANION GAP 6 mmol/L (5-15); BILIRUBIN,TOTAL 0.8 mg/dL (0.2-1.0); CALCIUM 9.8 mg/dL (8.5-10.1); CHOL/HDL RATIO 2.2; CHOLESTEROL, TOTAL 203 mg/dL (140-239); CREATININE 1.39 mg/dL (0.7-1.3); HDL CHOL % 45 % (26-37); HDL CHOLESTEROL (DIRECT) 92 mg/dL (40-60); LDL CHOLESTEROL,CALCULATED 87 mg/dL (54-169); LDL/HDL RATIO 0.9 (0.5-3.0); TOTAL PROTEIN 7.9 g/dL (6.4-8.2); TRIGLYCERIDES 122 mg/dL (50-200); VLDL CHOLESTEROL 24 mg/dL (0-25)
== END | disposition home or self-care (01) ==
LOC: CFH 08:58
PROVIDERS: ATTEND Internal Medicine
DX: I12.9 Hypertensive chronic kidney disease with stage 1 through stage 4 chronic kidney disease, or unspecified chronic kidney disease (principal); N18.3 Chronic kidney disease, stage 3 (moderate); D68.59 Other primary thrombophilia; E44.1 Mild protein-calorie malnutrition; E78.49 Other hyperlipidemia; F17.210 Nicotine dependence, cigarettes, uncomplicated; I25.10 Atherosclerotic heart disease of native coronary artery without angina pectoris; I48.92 Unspecified atrial flutter; J43.9 Emphysema, unspecified; N25.81 Secondary hyperparathyroidism of renal origin; M81.6 Localized osteoporosis [Lequesne]
CPT/HCPCS: 36415; 80053; 80061; 82306; 83970; 84100; 84443; 84550; 85025

== ENCOUNTER → 2020-01-04 | Outpatient (CLI) | payer MEDICARE, MEDICAID ==
[2020-01-04 13:27] LABS: MEAN CORPUSCULAR HEMOGLOBIN 30.5 pg (27.5-34.5); MEAN CORPUSCULAR HGB CONC 32.5 g/dL (33.2-36.2); MEAN CORPUSCULAR VOLUME 93.9 fL (81-97); MEAN PLATELET VOLUME 11.5 fL (7.4-10.4); PLATELET COUNT 241 x10^3/uL (130-400); RED BLOOD COUNT 4.15 x10^6/uL (4.38-5.82); RED CELL DISTRIBUTION WIDTH 14.4 % (9.4-14.8)
[2020-01-04 14:12] LABS: MD YES
[2020-01-04 14:15] LABS: BAND#(MANUAL) 0.16 x10^3/uL; BANDS%(MANUAL) 1 % (0-7); EOS#(MANUAL) 0.31 x10^3/uL (0.0-0.4); EOS% (MANUAL) 2 % (1-7); LYMPH#(MANUAL) 4.24 x10^3/uL (1-3.4); LYMPHS% (MANUAL) 27 % (22-44)
[2020-01-04 14:16] LABS: MONOS#(MANUAL) 1.41 x10^3/uL (0.3-2.7); MONOS% (MANUAL) 9 % (2-9); SEG#(MANUAL) 9.58 x10^3/uL (1.8-6.8); SEGS% (MANUAL) 61 % (42-75)
[2020-01-04 14:17] LABS: <PLATELET ESTIMATE> ADEQUATE; <RBC MORPHOLOGY> NORMAL; LARGE PLATELETS 1+
== END | disposition home or self-care (01) ==
LOC: CFH 09:50
PROVIDERS: ATTEND Internal Medicine Cardiovascular Disease
DX: D72.829 Elevated white blood cell count, unspecified (principal)
CPT/HCPCS: 36415; 85025

== ENCOUNTER 2020-08-13 13:27 | Emergency (ER) | payer MEDICARE, MEDICAID ==
[~2020-08-13] VITALS: Ht 180.3 cm; Wt 57.8 kg
[~2020-08-13 13:27] MED LIST changes: -MONT10TA11 PO; +MONT10TA96 PO
--- NOTE | 2020-08-13 13:58 | NUR ---
PATIENT IS A 75M COMPLAINING OF COUGHING UP A "MOUTHFUL OF BLOOD" PATIENT STATES IT WAS DARK RED BLOOD. HE HAS ALSO BEEN HAVING NOSEBLEEDS FROM THE LEFT NOSTRIL. HE HAS A HISTORY OF COPD AND USES 4L ON HOME O2. OTHER THAN THE BLOOD THIS MORNING HE FEELS GOOD. HE IS RESTING COMFORTABLY IN BED WITH WARM BLANKETS PROVIDED. CALL LIGHT WITHIN REACH. PATIENT IS ON 4L HERE AND O2 SATURATION IS 99%. ED PROVIDER AT BEDSIDE FOR EVALUATION AND DISCUSS PLAN OF CARE
[2020-08-13 14:30] LABS: BASOPHILS % (AUTO) 1 % (0-1); EOSINOPHILS % (AUTO) 3 % (1-7); LYMPHOCYTES % (AUTO) 23 % (22-44); MEAN CORPUSCULAR HEMOGLOBIN 30.7 pg (27.5-34.5); MEAN CORPUSCULAR HGB CONC 32.8 g/dL (33.2-36.2); MEAN PLATELET VOLUME 9.8 fL (7.4-10.4); MONOCYTES % (AUTO) 7 % (2-9); NEUTROPHILS % (AUTO) 67 % (42-75); PLATELET COUNT 262 x10^3/uL (130-400); RED BLOOD COUNT 3.74 x10^6/uL (4.38-5.82); RED CELL DISTRIBUTION WIDTH 13.8 % (9.4-14.8)
[2020-08-13 14:37] LABS: ALBUMIN 3.6 g/dL (3.4-5.0); ANION GAP 3 mmol/L (5-15); CALCIUM 9.7 mg/dL (8.5-10.1); CHLORIDE 101 mmol/L (98-107); CREATININE 1.13 mg/dL (0.7-1.3)
--- NOTE | 2020-08-13 15:32 | NUR ---
PT TO CT SCAN VIA [facility]
--- NOTE | 2020-08-13 15:46 | NUR ---
BACK FROM CT SCAN
[2020-08-13] MEDS ORDERED: OMNIPAQUE 350 MG/ML, 75ML BOTTLE ONE (15:51)
[2020-08-13 16:05] VITALS: BP 144/68
--- NOTE | 2020-08-13 16:06 | NUR ---
PATIENT IS RESTING COMFORTABLY WATCHING TV. HE REQUESTED TO HAVE HIS O2 TURNED DOWN TO 3.5/L. CYCLING VITALS AND CONTINUOUS SPO2. CALL LIGHT WITHIN REACH.
[2020-08-13 16:13] LABS: MD SCAN
[2020-08-13] MEDS ORDERED: ALBUTEROL/IPRATROPIUM 2.5MG/0.5MG, 3 ML NEB ONE (16:30)
[2020-08-13] MEDS ORDERED: ALBUTEROL/IPRATROPIUM 2.5MG/0.5MG, 3 ML ONE (16:34)
--- NOTE | 2020-08-13 17:32 | NUR ---
Patient/Caregiver given discharge instructions and they have confirmed that they understand the instructions. Patient ambulatory with steady gait.
== END 2020-08-13 17:35 | disposition home or self-care (01) ==
LOC: ED 17:10
DX: R04.2 Hemoptysis (principal); R04.0 Epistaxis; R07.9 Chest pain, unspecified; J44.9 Chronic obstructive pulmonary disease, unspecified; I11.0 Hypertensive heart disease with heart failure; I50.9 Heart failure, unspecified; I48.91 Unspecified atrial fibrillation; I25.2 Old myocardial infarction
CPT/HCPCS: 36415; 71045; 71275; 80048; 82040; 85025; 99285; Q9967

== ENCOUNTER 2020-09-27 10:38 | Outpatient (CLI) | payer MEDICARE, MEDICAID | END 2020-09-27 23:59 | disposition home or self-care (01) | LOC: CVU 10:38 → RAD 23:59 | PROVIDERS: ATTEND Internal Medicine Cardiovascular Disease | DX: Z12.2 Encounter for screening for malignant neoplasm of respiratory organs (principal); I08.3 Combined rheumatic disorders of mitral, aortic and tricuspid valves; R91.8 Other nonspecific abnormal finding of lung field; R06.02 Shortness of breath; I48.92 Unspecified atrial flutter; Z87.891 Personal history of nicotine dependence; J47.9 Bronchiectasis, uncomplicated; J43.2 Centrilobular emphysema; I25.10 Atherosclerotic heart disease of native coronary artery without angina pectoris | CPT/HCPCS: 71271; 93306; 93356 ==

== ENCOUNTER → 2020-09-27 | Outpatient (CLI) | payer MEDICARE, MEDICAID ==
[~2020-09-27] MED LIST changes: +MONT10TA17 PO; -MONT10TA96 PO
[2020-09-27 12:39] LABS: BASOPHILS % (AUTO) 0 % (0-1); EOSINOPHILS % (AUTO) 4 % (1-7); LYMPHOCYTES % (AUTO) 26 % (22-44); MEAN CORPUSCULAR HEMOGLOBIN 30.4 pg (27.5-34.5); MEAN CORPUSCULAR HGB CONC 32.5 g/dL (33.2-36.2); MEAN PLATELET VOLUME 9.7 fL (7.4-10.4); MONOCYTES % (AUTO) 7 % (2-9); NEUTROPHILS % (AUTO) 63 % (42-75); PLATELET COUNT 213 x10^3/uL (130-400); RED BLOOD COUNT 4.02 x10^6/uL (4.38-5.82); RED CELL DISTRIBUTION WIDTH 13.9 % (9.4-14.8)
[2020-09-27 12:40] LABS: MD NO
[2020-09-27 12:58] LABS: CHLORIDE 107 mmol/L (98-107)
[2020-09-27 13:27] LABS: ALANINE AMINOTRANSFERASE 27 U/L (12-78); ALBUMIN 3.7 g/dL (3.4-5.0); ALKALINE PHOSPHATASE 63 U/L (45-117); ANION GAP 4 mmol/L (5-15); BILIRUBIN,TOTAL 0.5 mg/dL (0.2-1.0); CALCIUM 8.8 mg/dL (8.5-10.1); CHOL/HDL RATIO 1.9; CHOLESTEROL, TOTAL 240 mg/dL (140-239); HDL CHOL % 53 % (26-37); HDL CHOLESTEROL (DIRECT) 127 mg/dL (40-60); LDL CHOLESTEROL,CALCULATED 95 mg/dL (54-169); LDL/HDL RATIO 0.7 (0.5-3.0); TOTAL PROTEIN 7.5 g/dL (6.4-8.2); TRIGLYCERIDES 92 mg/dL (50-200); VLDL CHOLESTEROL 18 mg/dL (0-25)
== END | disposition home or self-care (01) ==
LOC: LAB 10:48
PROVIDERS: ATTEND Internal Medicine
DX: D72.829 Elevated white blood cell count, unspecified (principal); E44.0 Moderate protein-calorie malnutrition; I12.9 Hypertensive chronic kidney disease with stage 1 through stage 4 chronic kidney disease, or unspecified chronic kidney disease; N18.30 Chronic kidney disease, stage 3 unspecified; N25.81 Secondary hyperparathyroidism of renal origin; R53.83 Other fatigue; J96.11 Chronic respiratory failure with hypoxia; I25.10 Atherosclerotic heart disease of native coronary artery without angina pectoris; M81.8 Other osteoporosis without current pathological fracture; J44.9 Chronic obstructive pulmonary disease, unspecified; N28.9 Disorder of kidney and ureter, unspecified; F17.210 Nicotine dependence, cigarettes, uncomplicated; Z95.1 Presence of aortocoronary bypass graft
CPT/HCPCS: 36415; 80053; 80061; 82306; 83970; 84100; 85025

== ENCOUNTER → 2020-12-24 | Outpatient (CLI) | payer MEDICARE, MEDICAID | END | disposition home or self-care (01) | LOC: EDSTATUS 10-30 11:00 → CFH 11:51 | PROVIDERS: ATTEND Registered Nurse | DX: M85.88 Other specified disorders of bone density and structure, other site (principal); M81.6 Localized osteoporosis [Lequesne] | CPT/HCPCS: 77080 ==

== ENCOUNTER 2021-03-15 09:35 | Day surgery (SDC) | payer MEDICARE, MEDICAID ==
[~2021-03-15] VITALS: Ht 180.3 cm; Wt 61.0 kg
[~2021-03-15 09:35] MED LIST changes: -ALBU5SOL6 INH; +DOCU50LI23 INH
[2021-03-15] MEDS ORDERED: SODIUM CHLORIDE 0.9% 1,000 ML IV SCH (10:30)
[2021-03-15] MEDS ORDERED: CHOL10003 PO (10:47)
[2021-03-15] MEDS ORDERED: PRED5TAB PO (10:47)
[2021-03-15] MEDS ORDERED: LIDOCAINE 1%, 20ML ONE (10:52)
[2021-03-15 11:06] VITALS: BP 180/89
[2021-03-15 11:06] LABS: BASOPHILS % (AUTO) 0 % (0-1); EOSINOPHILS % (AUTO) 3 % (1-7); LYMPHOCYTES % (AUTO) 31 % (22-44); MEAN CORPUSCULAR HEMOGLOBIN 29.9 pg (27.5-34.5); MEAN PLATELET VOLUME 9.7 fL (7.4-10.4); MONOCYTES % (AUTO) 8 % (2-9); NEUTROPHILS % (AUTO) 58 % (42-75); PLATELET COUNT 225 x10^3/uL (130-400); RED BLOOD COUNT 3.77 x10^6/uL (4.38-5.82); RED CELL DISTRIBUTION WIDTH 13.5 % (9.4-14.8)
[2021-03-15] MEDS ORDERED: SUGAMMADEX 200 MG/2 ML IVPush ONE (11:27)
[2021-03-15] MEDS ORDERED: PHENYLEPHRINE 10 MG/ML ONE (11:27)
[2021-03-15] MEDS ORDERED: FENTANYL PF 250 MCG/5ML ONE (11:27)
[2021-03-15] MEDS ORDERED: ROCURONIUM 10 MG/ML,10ML ONE (11:27)
[2021-03-15 11:41] LABS: ALANINE AMINOTRANSFERASE 21 U/L (12-78); ALBUMIN 3.4 g/dL (3.4-5.0); CALCIUM 10.1 mg/dL (8.5-10.1); CHLORIDE 99 mmol/L (98-107); CREATININE 0.99 mg/dL (0.7-1.3)
[2021-03-15 11:43] LABS: ALKALINE PHOSPHATASE 72 U/L (45-117); BILIRUBIN,TOTAL 0.4 mg/dL (0.2-1.0); INTERNATIONAL NORMALIZED RATIO 1.04 (0.93-1.1); PROTHROMBIN TIME 11.1 Seconds (9.6-11.5); TOTAL PROTEIN 7.7 g/dL (6.4-8.2)
[2021-03-15] MEDS ORDERED: DEXAMETHASONE 4 MG/ML, 1ML ONE (11:56)
[2021-03-15 11:57] LABS: ANION GAP 2 mmol/L (5-15)
[2021-03-15] MEDS ORDERED: HYDROCORTISONE 100 MG INJ. ONE (11:59)
[2021-03-15] MEDS ORDERED: PROPOFOL 10 MG/ML, 20ML ONE (12:00)
[2021-03-15] MEDS ORDERED: EPHEDRINE 50 MG/ML, 1ML ONE (12:14)
[2021-03-15] MEDS ORDERED: ONDANSETRON 2MG/ML, 2ML IVPush PRN (13:00)
[2021-03-15] MEDS ORDERED: DIAZEPAM 5 MG/ML, 2ML IVPush PRN (13:00)
[2021-03-15] MEDS ORDERED: PROMETHAZINE 25 MG/ML, 1ML IVPush PRN (13:00)
[2021-03-15] MEDS ORDERED: LABETALOL 5MG/ML, 20ML IV PRN (13:00)
[2021-03-15] MEDS ORDERED: MEPERIDINE/PF 25MG/0.5ML IVPush PRN (13:00)
[2021-03-15] MEDS ORDERED: FENTANYL PF 100 MCG/2ML IV PRN (13:00)
[2021-03-15] MEDS ORDERED: DIPHENHYDRAMINE 50 MG/ML, 1ML IVPush PRN ×2 (13:00)
[2021-03-15] MEDS ORDERED: OXYcodone 5 MG/5 ML ORAL.SOL UDC PO PRN (13:00)
[2021-03-15] MEDS ORDERED: hydrALAzine 20 MG/ML, 1ML IV PRN (13:00)
[2021-03-15] MEDS ORDERED: ALBUTEROL SULFATE 2.5 MG/3 ML NPPB PRN (13:00)
[2021-03-15] MEDS ORDERED: HYDROmorphone 1 MG/ML, 1ML INJ IVPush PRN (13:00)
[2021-03-15] MEDS ORDERED: ACETAMINOPHEN 325 MG TABLET PO PRN (13:00)
[2021-03-15] MEDS ORDERED: MIDAZOLAM 1 MG/ML, 2ML IV PRN (13:00)
[2021-03-15] MEDS ORDERED: EPHEDRINE 50 MG/ML, 1ML IVPush PRN (13:00)
[2021-03-15] MEDS ORDERED: PROMETHAZINE 12.5 MG SUPP PR PRN (13:00)
[2021-03-15 14:55] VITALS: BP 162/84
== END 2021-03-15 18:06 | disposition home or self-care (01) ==
LOC: CACL 09:35 → 5SO 14:19 → CACL 18:06
PROVIDERS: ATTEND Internal Medicine Cardiovascular Disease
DX: I48.92 Unspecified atrial flutter (principal); I08.1 Rheumatic disorders of both mitral and tricuspid valves; I25.10 Atherosclerotic heart disease of native coronary artery without angina pectoris; I12.9 Hypertensive chronic kidney disease with stage 1 through stage 4 chronic kidney disease, or unspecified chronic kidney disease; N18.30 Chronic kidney disease, stage 3 unspecified; E78.5 Hyperlipidemia, unspecified; J44.9 Chronic obstructive pulmonary disease, unspecified; Z20.822 Contact with and (suspected) exposure to COVID-19; Z79.01 Long term (current) use of anticoagulants; Z79.82 Long term (current) use of aspirin; Z79.899 Other long term (current) drug therapy; Z87.891 Personal history of nicotine dependence; Z99.81 Dependence on supplemental oxygen
CPT/HCPCS: 71046; 80053; 85025; 85610; 85730; 87635; 93312; 93321; 93325; 93613; 93621; 93653; C1730; C1732; C1894; J1100; J1720; J2370; J2704; J3010; G0378